=== PATIENT | female | born 1945 | race Two or more races ===

== ENCOUNTER 2018-05-14 08:31 | Outpatient (CLI) | payer OTHER ==
[~2018-05-14 08:31] MED LIST: ATORVASTATIN CA20 MG; CALTRATE 600+D1 EAC1; CENTRUM SILVER1 EAC3 PO; LATANOPROST2.5 ML OP; LUNESTA2 MG; SYNTHROID50 MCG PO; SYNTHROID75 MCG PO
== END 2018-05-14 08:37 | disposition home or self-care (01) ==
LOC: SONOGRAMA 08:31 → MAMO-SONO 08:45
DX: R10.31 Right lower quadrant pain (principal); R10.33 Periumbilical pain; R10.32 Left lower quadrant pain

== ENCOUNTER 2019-05-29 11:42 | Outpatient (CLI) | payer OTHER | END 2019-05-29 11:50 | disposition home or self-care (01) | LOC: MAMO-SONO 11:42 | DX: Z12.31 Encounter for screening mammogram for malignant neoplasm of breast (principal); Z87.898 Personal history of other specified conditions; N60.11 Diffuse cystic mastopathy of right breast ==

== ENCOUNTER 2019-07-24 09:58 | Outpatient (CLI) | payer OTHER | END 2019-07-24 10:06 | disposition home or self-care (01) | LOC: NUCLEAR 09:58 | DX: M81.0 Age-related osteoporosis without current pathological fracture (principal) ==

== ENCOUNTER 2020-11-23 12:29 | Outpatient (CLI) | payer OTHER | END 2020-11-23 12:31 | disposition home or self-care (01) | LOC: MAMO-SONO 12:29 | PROVIDERS: ATTEND Specialist | DX: M81.0 Age-related osteoporosis without current pathological fracture (principal) ==

== ENCOUNTER 2020-12-03 12:41 | Outpatient (CLI) | payer OTHER | END 2020-12-03 13:09 | disposition home or self-care (01) | LOC: MAMO-SONO 12:41 | PROVIDERS: ATTEND Specialist | DX: Z12.31 Encounter for screening mammogram for malignant neoplasm of breast (principal); Z87.898 Personal history of other specified conditions; N60.21 Fibroadenosis of right breast; N60.22 Fibroadenosis of left breast ==

== ENCOUNTER 2021-06-14 11:53 | Outpatient (CLI) | payer OTHER | END 2021-06-14 12:01 | disposition home or self-care (01) | LOC: RAD 11:53 | PROVIDERS: ATTEND Internal Medicine Pulmonary Disease | DX: I10 Essential (primary) hypertension (principal) ==

== ENCOUNTER 2021-11-18 13:57 | Outpatient (CLI) | payer OTHER | END 2021-11-18 14:01 | disposition home or self-care (01) | LOC: RAD 13:57 | PROVIDERS: ATTEND Internal Medicine Rheumatology | DX: M50.323 Other cervical disc degeneration at C6-C7 level (principal) ==

== ENCOUNTER 2022-03-10 11:02 | Outpatient (CLI) | payer OTHER | END 2022-03-10 11:11 | disposition home or self-care (01) | LOC: MAMO-SONO 11:02 | PROVIDERS: ATTEND Specialist | DX: N60.21 Fibroadenosis of right breast (principal); N60.22 Fibroadenosis of left breast; Z12.31 Encounter for screening mammogram for malignant neoplasm of breast ==

== ENCOUNTER 2022-10-20 13:34 | Outpatient (CLI) | payer OTHER | END 2022-10-20 13:39 | disposition home or self-care (01) | LOC: RAD 13:34 | PROVIDERS: ATTEND Internal Medicine | DX: M54.50 Low back pain, unspecified (principal) ==

== ENCOUNTER → 2022-10-25 | Outpatient (CLI) | payer OTHER | END | disposition home or self-care (01) | LOC: TOM 14:36 | PROVIDERS: ATTEND Internal Medicine | DX: M54.50 Low back pain, unspecified (principal) ==

== ENCOUNTER → 2023-01-18 | Outpatient (CLI) | payer OTHER ==
[~2023-01-18] MED LIST changes: +DICLOFENAC POTA50 MG PO
== END | disposition home or self-care (01) ==
LOC: NUCLEAR 13:10
PROVIDERS: ATTEND Specialist
DX: M81.0 Age-related osteoporosis without current pathological fracture (principal)

== ENCOUNTER 2023-09-12 15:32 | Outpatient (CLI) | payer OTHER | END 2023-09-12 15:35 | disposition home or self-care (01) | LOC: RAD 15:32 | PROVIDERS: ATTEND Internal Medicine Hematology & Oncology | DX: J20.8 Acute bronchitis due to other specified organisms (principal); J82.83 Eosinophilic asthma; R05.2 Subacute cough; Z88.6 Allergy status to analgesic agent ==

== ENCOUNTER 2024-05-02 13:52 | Outpatient (CLI) | payer OTHER | END 2024-05-02 14:06 | disposition home or self-care (01) | LOC: MAMO-SONO 13:52 | PROVIDERS: ATTEND Internal Medicine | DX: N60.19 Diffuse cystic mastopathy of unspecified breast (principal); Z12.31 Encounter for screening mammogram for malignant neoplasm of breast ==

== ENCOUNTER 2024-09-12 13:26 | Outpatient (CLI) | payer OTHER | END 2024-09-12 13:34 | disposition home or self-care (01) | LOC: RAD 13:26 | PROVIDERS: ATTEND Internal Medicine | DX: R05.9 Cough, unspecified (principal) ==

== ENCOUNTER 2024-11-05 11:56 | Outpatient (CLI) | payer OTHER | END 2024-11-05 12:01 | disposition home or self-care (01) | LOC: SONOGRAMA 11:56 | PROVIDERS: ATTEND Internal Medicine | DX: N20.0 Calculus of kidney (principal); R31.9 Hematuria, unspecified ==

== ENCOUNTER 2025-03-28 12:56 | Outpatient (CLI) | payer OTHER | END 2025-03-28 13:11 | disposition home or self-care (01) | LOC: TOM 12:56 | DX: H53.2 Diplopia (principal) ==

== ENCOUNTER 2025-05-22 14:08 | Outpatient (CLI) | payer OTHER | END 2025-05-22 14:14 | disposition home or self-care (01) | LOC: MAMO-SONO 14:08 | PROVIDERS: ATTEND Obstetrics & Gynecology | DX: N60.11 Diffuse cystic mastopathy of right breast (principal); Z12.31 Encounter for screening mammogram for malignant neoplasm of breast ==